=== PATIENT | male | born 1985 | race Caucasian/White ===

== ENCOUNTER → 2021-10-19 | Outpatient (REF) | payer OTHER | LOC: M LAB REF 12:40 | PROVIDERS: ATTEND Physician Assistant Medical | DX: R50.9 Fever, unspecified (principal); R11.2 Nausea with vomiting, unspecified; R53.83 Other fatigue ==

== ENCOUNTER 2022-11-12 19:48 | Emergency (ER) | payer OTHER ==
[~2022-11-12] VITALS: Ht 188 cm; Wt 102.7 kg
[2022-11-12 19:49] VITALS: BP 155/103; TEMP 98.7; O2SAT 99
[2022-11-13] MEDS ORDERED: TRAM50TA2 PO ×2 (00:31→00:48)
== END 2022-11-13 01:11 | disposition home or self-care (01) ==
LOC: M ED 19:48
DX: S62.323A Displaced fracture of shaft of third metacarpal bone, left hand, initial encounter for closed fracture (principal); W11.XXXA Fall on and from ladder, initial encounter; Y92.009 Unspecified place in unspecified non-institutional (private) residence as the place of occurrence of the external cause; Y93.89 Activity, other specified